=== PATIENT | male | born 1970 | race Caucasian/White ===

== ENCOUNTER 2025-06-20 09:40 | Outpatient (CLI) | payer MEDICAID, SELFPAY ==
--- NOTE | 2025-06-20 09:48 | USR_ITS ---
PROCEDURE INFORMATION: Exam: US Bilateral Noninvasive Physiologic Study of the Lower Extremity Arteries, Limited Exam date and time: 06/20/2025 9:38 AM Age: 55 years old Clinical indication: Pain; Leg, lower; Left; Additional info: Pain in left leg TECHNIQUE: Imaging protocol: Bilateral Limited bilateral noninvasive physiologic studies of lower extremity arteries. Waveforms were obtained and evaluated. Images were documented and archived. Exam is limited. COMPARISON: No relevant prior studies available. FINDINGS: Right Ankle-Brachial Index: 0.71 using the posterior tibial and 0 using the dorsalis pedis. Left Ankle-Brachial Index: 0.63 using the posterior tibial and 0 using dorsalis pedis. US/CV ankle brachial index 73301 IMPRESSION: Both dorsalis pedis arteries appear occluded. Moderate arterial disease based upon the posterior tibial brachial indices bilaterally. Consider CT angiography.
== END 2025-06-20 09:41 | disposition home or self-care (01) ==
LOC: RAD 09:41
PROVIDERS: Visit Provider Family Medicine
DX: I70.203 Unspecified atherosclerosis of native arteries of extremities, bilateral legs (principal)
CPT/HCPCS: 93922